=== PATIENT | male | born 1950 | race Caucasian/White ===

== ENCOUNTER 2018-02-19 23:45 | Emergency (ER) | payer MEDICARE ==
--- NOTE | 2018-02-20 01:20 | ER ---
Nurse's Notes [facility] Name: Guido Solis Age: 67 yrs Sex: Male : 1950 Arrival Date: 02/19/2018 Time: 23:45 Bed 13 Private MD: Diagnosis: Vomiting, unspecified;Diarrhea, unspecified Presentation: 02/19 23:50 Presenting complaint: Patient states: lower abd pain since 30 mins [employer]. Reports he was aa1 seen earlier today for the same complaint at [facility] in [place] but reports his symptoms came back. States he was told it was from his BP being elevated and he was given a rx for a new BP med but has not been able to have it filled yet. Pt also reports he is currently homeless and has been living at the [facility]. Transition of care: patient was not received from another setting of care. Onset of symptoms was February 19, 2018. Care prior to arrival: None. 23:50 Method Of Arrival: EMS: [facility] aa1 23:50 Acuity: GUIDO 3 aa1 Historical: - Allergies: 02/20 00:17 No Known Allergies; aa1 - Home Meds: 00:17 Unable to obtain [Active]; aa1 - PMHx: 00:17 High Cholesterol; Hypertension; Diabetes - NIDDM; neuropathy; aa1 - PSHx: 00:17 Knee surgery; aa1 - Immunization history:: Flu vaccine is up to date. - Social history:: Smoking status: Patient uses tobacco products, smokes one-half pack cigarettes per day. Screenin/11 23:52 Abuse screen: Denies threats or abuse. Denies injuries from another. Nutritional aa1 screening: No deficits noted. Tuberculosis screening: No symptoms or risk factors identified. Fall Risk None identified. Assessment: 23:52 General: Appears in no apparent distress. comfortable, Behavior is calm, cooperative, aa1 appropriate for age. Pain: Complains of pain in right lower quadrant and left lower quadrant Pain currently is 8 out of 10 on a pain scale. Quality of pain is described as pressure, Pain began 30 min ago. Is continuous. Neuro: Level of Consciousness is awake, alert, obeys commands, Oriented to person, place, time, situation, Moves all extremities. Full function. Cardiovascular: Denies chest pain, palpitations, shortness of breath, Heart tones S1 S2 present Rhythm is regular. Respiratory: Airway is patent Respiratory effort is even, unlabored, Respiratory pattern is regular, symmetrical. GI: Abdomen is non-distended, Bowel sounds present X 4 quads. Abd is soft X 4 quads Reports lower abdominal pain, Patient currently denies constipation, diarrhea, nausea, vomiting. : No signs and/or symptoms were reported regarding the genitourinary system. EENT: No signs and/or symptoms were reported regarding the EENT system. Derm: Skin is intact, is healthy with good turgor, Skin is pink, warm \T\ dry. Musculoskeletal: Circulation, motion, and sensation intact. Capillary refill < 3 seconds. 02/20 00:52 Reassessment: Patient appears in no apparent distress at this time. Patient and/or aa1 family updated on plan of care and expected duration. Pain level reassessed. Patient is alert, oriented x 3, equal unlabored respirations, skin warm/dry/pink. Pt still awaiting initial assessment by provider. 01:39 Reassessment: Patient appears in no apparent distress at this time. Patient is alert, aa1 oriented x 3, equal unlabored respirations, skin warm/dry/pink. Discussed d/c \T\ f/u instructions with pt; denies questions or concerns at this time. Vital Signs: 02/19 23:50 BP 173 / 72; Pulse 73; Resp 18; Temp 98.6; Pulse Ox 100% on R/A; Weight 84.37 kg; aa1 Height 5 ft. 10 in. (177.80 cm); Pain 8/10; 02/20 00:52 BP 147 / 68; Pulse 65; Resp 18; Pulse Ox 99% on R/A; aa1 01:39 BP 154 / 67; Pulse 66; Resp 18; Pulse Ox 99% on R/A; aa1 02/19 23:50 Body Mass Index 26.69 (84.37 kg, 177.80 cm) aa1 ED Course: 02/19 23:45 Patient arrived in ED. aa1 23:50 Arm band placed on right wrist. Patient placed in an exam room, on a stretcher. aa1 23:52 Patient has correct armband on for positive identification. Placed in gown. Bed in low aa1 position. Call light in reach. Side rails up X2. Pulse ox on. NIBP on. Warm blanket given. Pillow given. 02/20 00:06 Belén Phan, RN is Primary Nurse. aa1 00:13 Triage completed. aa1 00:57 Riddhi Morris FNP-C is [facility]. snw 00:57 Tre Beaver MD is Attending Physician. snw 01:39 No provider procedures requiring assistance completed. Patient did not have IV access aa1 during this emergency room visit. Administered Medications: 01:38 Drug: Zofran 4 mg Route: PO; aa1 01:38 Follow up: Response: Medication administered at discharge. aa1 Outcome: 01:19 Discharge ordered by . snw 01:39 Discharged to home ambulatory. aa1 01:39 Condition: good 01:39 Discharge instructions given to patient, Instructed on discharge instructions, follow up and referral plans. medication usage, Demonstrated understanding of instructions, follow-up care, medications, Prescriptions given X 1. 01:40 Patient left the ED. aa1 Signatures: Belén Phan RN RN aa1 Riddhi Morris FNP-C [facility]
--- NOTE | 2018-02-20 01:20 | EDPHYS ---
Physician Documentation [facility] Name: Guido Solis Age: 67 yrs Sex: Male : 1950 Arrival Date: 02/19/2018 Time: 23:45 Bed 13 Private MD: ED Physician Tre Beaver HPI: 02/20 01:29 This 67 yrs old Male presents to ER via EMS with complaints of N/V/D. snw 01:29 The patient presents to the emergency department with vomiting, 3 times today, snw diarrhea, 3 times today, abdominal pain, of the right lower quadrant and left lower quadrant, described as crampy. Onset: The symptoms/episode began/occurred suddenly, today. Associated signs and symptoms: The patient has no apparent associated signs or symptoms. Severity of symptoms: At their worst the symptoms were mild moderate. It is unknown whether or not the patient has had similar symptoms in the past. The patient has not recently seen a physician. Historical: - Allergies: 00:17 No Known Allergies; aa1 - Home Meds: 00:17 Unable to obtain [Active]; aa1 - PMHx: 00:17 High Cholesterol; Hypertension; Diabetes - NIDDM; neuropathy; aa1 - PSHx: 00:17 Knee surgery; aa1 - Immunization history:: Flu vaccine is up to date. - Social history:: Smoking status: Patient uses tobacco products, smokes one-half pack cigarettes per day. ROS: 01:28 Constitutional: Negative for fever, chills, and weight loss, Eyes: Negative for injury, snw pain, redness, and discharge, ENT: Negative for injury, pain, and discharge, Neck: Negative for injury, pain, and swelling, Cardiovascular: Negative for chest pain, palpitations, and edema, Respiratory: Negative for shortness of breath, cough, wheezing, and pleuritic chest pain, Back: Negative for injury and pain, : Negative for injury, bleeding, discharge, and swelling, MS/Extremity: Negative for injury and deformity, Skin: Negative for injury, rash, and discoloration, Neuro: Negative for headache, weakness, numbness, tingling, and seizure. 01:28 Abdomen/GI: Positive for nausea, vomiting, and diarrhea. Exam: 01:28 Constitutional: This is a well developed, well nourished patient who is awake, alert, snw and in no acute distress. Head/Face: Normocephalic, atraumatic. Eyes: Pupils equal round and reactive to light, extra-ocular motions intact. Lids and lashes normal. Conjunctiva and sclera are non-icteric and not injected. Cornea within normal limits. Periorbital areas with no swelling, redness, or edema. ENT: Nares patent. No nasal discharge, no septal abnormalities noted. Tympanic membranes are normal and external auditory canals are clear. Oropharynx with no redness, swelling, or masses, exudates, or evidence of obstruction, uvula midline. Mucous membranes moist. Neck: Trachea midline, no thyromegaly or masses palpated, and no cervical lymphadenopathy. Supple, full range of motion without nuchal rigidity, or vertebral point tenderness. No Meningismus. Chest/axilla: Normal chest wall appearance and motion. Nontender with no deformity. No lesions are appreciated. Cardiovascular: Regular rate and rhythm with a normal S1 and S2. No gallops, murmurs, or rubs. Normal PMI, no JVD. No pulse deficits. Respiratory: Lungs have equal breath sounds bilaterally, clear to auscultation and percussion. No rales, rhonchi or wheezes noted. No increased work of breathing, no retractions or nasal flaring. Abdomen/GI: Soft, non-tender, with normal bowel sounds. No distension or tympany. No guarding or rebound. No evidence of tenderness throughout. Back: No spinal tenderness. No costovertebral tenderness. Full range of motion. Skin: Warm, dry with normal turgor. Normal color with no rashes, no lesions, and no evidence of cellulitis. MS/ Extremity: Pulses equal, no cyanosis. Neurovascular intact. Full, normal range of motion. Neuro: Awake and alert, GCS 15, oriented to person, place, time, and situation. Cranial nerves II-XII grossly intact. Motor strength 5/5 in all extremities. Sensory grossly intact. Cerebellar exam normal. Normal gait. Vital Signs: 02/19 23:50 BP 173 / 72; Pulse 73; Resp 18; Temp 98.6; Pulse Ox 100% on R/A; Weight 84.37 kg; aa1 Height 5 ft. 10 in. (177.80 cm); Pain 8/10; 02/20 00:52 BP 147 / 68; Pulse 65; Resp 18; Pulse Ox 99% on R/A; aa1 01:39 BP 154 / 67; Pulse 66; Resp 18; Pulse Ox 99% on R/A; aa1 02/19 23:50 Body Mass Index 26.69 (84.37 kg, 177.80 cm) aa MDM: 00:58 Patient medically screened. [facility] 01:29 Data reviewed: vital signs, nurses notes. Data interpreted: Pulse oximetry: on room air snw is 99 %. Interpretation: normal. Counseling: I had a detailed discussion with the patient and/or guardian regarding: the historical points, exam findings, and any diagnostic results supporting the discharge/admit diagnosis, the presence of at least one elevated blood pressure reading (>120/80) during this emergency department visit, the need for outpatient follow up, to return to the emergency department if symptoms worsen or persist or if there are any questions or concerns that arise at home. Special discussion: Based on the patient's Hx, exam, and Dx evaluation, there is no indication for emergent surgery or inpatient Tx. It is understood by the patient/guardian that if the Sx's persist or worsen they need to return immediately for re-evaluation. Based on the history and exam findings, there is no indication for further emergent testing or inpatient evaluation. I discussed with the patient/guardian the need to see the primary care provider for further evaluation of the symptoms. Administered Medications: 01:38 Drug: Zofran 4 mg Route: PO; aa1 01:38 Follow up: Response: Medication [facility] at [facility] Disposition: 09:14 Co-signature as Attending Physician, Tre Beaver MD I agree with the assessment and [facility] plan of care. Disposition: 02/20/18 01:19 Discharged to Home. Impression: Vomiting, unspecified, Diarrhea, unspecified. - Condition is Stable. - Discharge Instructions: Food Choices to Help Relieve Diarrhea, Adult, Diarrhea, Clear Liquid Diet, Nausea and Vomiting, Rehydration, Adult. - Prescriptions for Zofran 4 mg Oral Tablet - take 1 tablet by ORAL route every 12 hours As needed; 20 tablet. - Medication Reconciliation Form, Thank You Letter, Antibiotic Education, Prescription Opioid Use form. - Follow up: Private Physician; When: 2 - 3 days; Reason: Recheck today's complaints, Continuance of care, Re-evaluation by your physician. Follow up: Emergency Department; When: As needed; Reason: Worsening of condition. Signatures: Belén Phan RN RN aa1 Tre Beaver MD MD cha Therrien, Shelly, [employer]-C [employer]
[2018-02-20] MEDS ORDERED: ONDANSETRON 4 MG (ODT) TAB ONE (01:35)
== END 2018-02-20 01:40 | disposition home or self-care (01) ==
LOC: ER 23:45
DX: R19.7 Diarrhea, unspecified (principal); I10 Essential (primary) hypertension; F17.210 Nicotine dependence, cigarettes, uncomplicated
CPT/HCPCS: 99284